=== PATIENT | male | born 1945 | race Caucasian/White ===

== ENCOUNTER 2019-04-04 04:14 | Inpatient (IN) ==
--- NOTE | 2019-03-29 10:08 | EKG Report ---
Test Performed on : 03/29/2019 10:05:37 AM Test Reason : PAT Blood Pressure : / mmHG Vent. Rate : 089 BPM Atrial Rate : 089 BPM P-R Int : 232 ms QRS Dur : 092 ms QT Int : 362 ms P-R-T Axes : 063 -20 037 degrees QTc Int : 440 ms Sinus rhythm. with 1st degree AV block. Possible Inferior infarct , age undetermined Possible Anterolateral infarct , age undetermined Abnormal ECG When compared with ECG of 08-OCT-2017 18:42, premature ventricular complexes. are no longer present DE interval has increased Borderline criteria for Anterolateral infarct are now present Borderline criteria for Inferior infarct are now present Confirmed by Raghu Bishop MD ([id number]) on 03/31/2019 7:20:31 AM
[2019-03-29 10:41] LABS: HEMATOCRIT 33.5 % (42.0-52.0); MCH 34.4 PG (27-31); MCHC 32.8 g/dL (33-37); MCV 104.7 FL (81-99); MPV 9.4 FL (7.4-10.4); RBC 3.2 XMIL (4.7-6.1); RDW 13.7 % (11.5-14.5); WBC 8.34 X1000 (4.8-10.8)
[2019-03-29 10:59] LABS: AGAP 11; BUN 29 mg/dL (8-22); CALCIUM 9.2 mg/dL (8.8-10.2); CHLORIDE 105 mmol/L (98-107); COSMO 292; CREATININE 1.1 mg/dL (0.7-1.2); ESTIMATED GFR > 60; GLUCOSE 125 mg/dL (70-104); POTASSIUM 4.6 mmol/L (3.5-5.1); SODIUM 143 mmol/L (136-145); TCO2 27 mmol/L (25-35)
[2019-04-04] MEDS ORDERED: LR 1,000 ML ONE ×3 (05:37→11:04)
[2019-04-04] MEDS ORDERED: PEPCID ONE (05:37)
[2019-04-04] MEDS ORDERED: KEFZOL 1 GM/D5W 1 GM/50 ML IVPB ONE ×2 (05:37→12:07)
[2019-04-04] MEDS ORDERED: NITROGLYCERIN 50 MG/D5W 50 MG/250 ML IV.SOLN ONE (06:02)
[2019-04-04] MEDS ORDERED: NS 500 ML ONE (06:32)
[2019-04-04] MEDS ORDERED: XYLOCAINE 1% ONE (06:32)
[2019-04-04] MEDS ORDERED: MARCAINE 0.25% PF/EPI 1:200,000 ONE (06:32)
[2019-04-04] MEDS ORDERED: KEFZOL ONE ×2 (06:32→12:20)
[2019-04-04] MEDS ORDERED: HEPARIN ONE (06:32)
[2019-04-04] MEDS ORDERED: NS 1,000 ML ONE ×2 (06:33→11:26)
[2019-04-04] MEDS ORDERED: NEO-SYNEPHRINE ONE (07:57)
[2019-04-04] MEDS ORDERED: XYLOCAINE-MPF 2% ONE ×2 (07:57→12:04)
[2019-04-04] MEDS ORDERED: DECADRON ONE (07:57)
[2019-04-04] MEDS ORDERED: ROBINUL ONE (07:57)
[2019-04-04] MEDS ORDERED: AMIDATE ONE ×2 (07:57→12:03)
[2019-04-04] MEDS ORDERED: NEOSTIGMINE ONE (07:57)
[2019-04-04] MEDS ORDERED: QUELICIN (DOSE) ONE ×2 (07:57→12:04)
[2019-04-04] MEDS ORDERED: ZOFRAN ONE (07:57)
[2019-04-04] MEDS ORDERED: HEPARIN (DOSE) ONE (07:57)
--- NOTE | 2019-04-04 09:21 | OPERATIVE NOTE ---
PROCEDURE DATE: 04/04/2019 PROCEDURE PERFORMED: Left carotid endarterectomy with patch angioplasty. SURGEON: Marques Delarosa M.D. [employer]: Eduardo Pagan RN. PREOPERATIVE DIAGNOSIS: High-grade left internal carotid stenosis. POSTOPERATIVE DIAGNOSIS: High-grade left internal carotid stenosis. DESCRIPTION OF PROCEDURE: Satisfactory general endotracheal anesthesia was achieved. The left side of the neck was prepped and draped in a sterile fashion. We marked the skin in the skin line. We anesthetized the skin with 0.25% Marcaine with epinephrine, and then incised the skin, and carried our incision to the platysma. We achieved satisfactory hemostasis along the skin edge and subcutaneous tissue. We then dissected along the anterior border of the sternocleidomastoid muscle. We placed a Gelpi retractor. We identified the common carotid artery surrounded with an umbilical tape. Then, 5000 units of heparin were given. We dissected along the course of the bulb, external and internal carotids. We surrounded the external and superior thyroid with a large vessel loop. The internal carotid was surrounded with a small vessel loop. Small crossing veins were clipped and divided. The hypoglossal nerve was identified and protected from harm. After the heparin had circulated for more than 5 minutes, we then occluded flow in the branch vessels, and then clamped the common carotid with an angled DeBakey clamp. Under 2.5 loupe magnification, we incised the common carotid, and extended it with a Watson scissors through a significantly calcific plaque, into the internal, past the plaque. A 4 to 3 mm Sundt shunt was placed with clamp time being between 2 and 3 minutes. We held the shunt secure in the artery. Under 2.5 loupe magnification, we then raised the plaque out of the common, transected it with the Watson scissors, used a Emmett to dissect it out of the bulb. We did an eversion endarterectomy out of the external, and then dissected out of the internal until we reached a satisfactory taper point in the internal. We then irrigated out the endarterectomized vessel, removing all leaflets that we could identify. Two 7-0 Prolene stitches were used to tack the intima distally. We then obtained a 1 x 6 patch, which had been soaked while we were operating, and then began the patch angioplasty using a 6-0 Prolene running stitch. As we neared completion of the patch angioplasty, we back bled the external, removed the shunt from the internal and back bled it, then removed the shunt from the common, forward bleeding it. We once again clamped off the vessels. We then finished the patch angioplasty. As we then held the internal occluded, we opened the external and the common, and after 5 seconds, opened the internal. A couple of extra stitches were used to achieve satisfactory hemostasis of the patch angioplasty. We irrigated out the neck with Kefzol- impregnated saline, and placed a Kapil drain within the wound. We then once again injected 0.25% Marcaine with epinephrine along the course of the incision. We then closed the platysma with a running 3-0 Polysorb. We closed the skin with a 4-0 Polysorb subcuticular stitch. A sterile dressing was applied. Gauze was placed around the exit site of the drain as well. He tolerated the procedure satisfactorily, was awakened at the time of this dictation. cc: Marques Delarosa MD
[2019-04-04] MEDS: OFIRMEV 1000 MG/ISOTONIC SOLN 1,000 MG/100 ML BOTTLE ONE (10:00)
[2019-04-04] MEDS: ALBUMIN 25% ONE (10:45)
[2019-04-04] MEDS ORDERED: NEO-SYNEPHRINE 50 MG in NS 250 ML IV SCH (11:00)
[2019-04-04 11:06] LABS: BASO# 0.03 X1000 (0.0-0.2); BASO% 0.3 % (0.0-0.8); EOS# 0.05 X1000 (0.0-0.7); EOS% 0.4 % (0.0-10.0); HEMATOCRIT 27.9 % (42.0-52.0); HEMOGLOBIN 9.1 g/dL (14.0-18.0); IMM GRAN# 0.03 X1000 (0.0-0.04); IMM GRAN% 0.3 % (0.0-0.5); LYMPH# 2.16 X1000 (1.2-3.4); LYMPH% 18.6 % (20.5-51.1); MCH 34.6 PG (27-31); MCHC 32.6 g/dL (33-37); MCV 106.1 FL (81-99); MONO% 5.2 % (1.7-9.3); MPV 9.3 FL (7.4-10.4); NEUT# 8.75 X1000 (1.4-6.5); NEUT% 75.2 % (42.2-75.2); PLT 136 X1000 (130-400); RBC 2.63 XMIL (4.7-6.1); RDW 13.5 % (11.5-14.5); WBC 11.62 X1000 (4.8-10.8)
[2019-04-04] MEDS ORDERED: THROMBIN-JMI ONE (12:24)
[2019-04-04] MEDS ORDERED: ULTRAM PO PRN (14:17)
[2019-04-04] MEDS ORDERED: ASPIRIN PO SCH (14:17)
[2019-04-04] MEDS ORDERED: ZOFRAN IV PRN (14:17)
[2019-04-04] MEDS: LR 1,000 ML IV SCH (14:40)
--- NOTE | 2019-04-04 15:25 | OPERATIVE NOTE ---
PROCEDURE DATE: 04/04/2019 PROCEDURES: Left neck exploration. PREOP DIAGNOSIS: Postoperative bleeding. POSTOPERATIVE DIAGNOSIS: Postoperative bleeding. INDICATIONS: A 73-year-old who has had a left carotid endarterectomy with patch angioplasty this morning in the recovery room. He has bled about 1000 mL out his drain. It is bright red blood in character. His hemodynamics have stayed stable. His hemoglobin has fallen to 9, his PTT appears to be within normal range now so we will take him back for left neck exploration. I discussed it with him as well as his family. They understand and agree to proceed. DESCRIPTION OF PROCEDURE: The patient was brought back to the operating room. Satisfactory general endotracheal anesthesia was achieved. The drain was removed from the neck. The left neck was then prepped and draped in a sterile fashion. Another gram of Kefzol was given since had been about almost 6 hours since the previous one. We incised the subcuticular stitch, cut the stitches within the platysma and exposed the neck. There was hematoma within the neck. It was evacuated. After removing all the clot we then examined the patch angioplasty. There was no bleeding from the patch angioplasty. There was oozing from the surrounding tissue including lymph node. One small vessel was clipped. We cauterized the surrounding tissue that just had generalized oozing. We explored the wound extensively to cauterize any oozing bleeding tissue. We then irrigated out the wound with Kefzol-impregnated saline. We then used topical thrombin to irrigate the wound with and let the thrombin sit in the wound as well. After that was used up once again we placed a new Kapil drain. There was oozing from the drain site as well and it was also treated with thrombin spray. The new Kapil drain was placed. It was secured at the skin level the 2-0 silk. We then closed the platysma with a running 3-0 Polysorb. The skin was closed with 4-0 Polysorb subcuticular stitch. Sterile dressing was applied. He tolerated procedure satisfactorily, was awakened time this dictation. cc: Marques Delarosa MD
[2019-04-04] MEDS: OFIRMEV 1000 MG/ISOTONIC SOLN 1,000 MG/100 ML BOTTLE IV SCH ×2 (16:41→21:57)
[2019-04-04] MEDS: NEO-SYNEPHRINE 50 MG in NS 250 ML IV SCH (18:39)
--- NOTE | 2019-04-04 19:06 | GENERAL SURGERY PROGRESS NOTE ---
DATE: 04/04/2019 It is 4:30 in the afternoon. Mr. Gagnon has had no further bleeding of significance since his re- exploration. His hemodynamics are good. Blood pressure is 150. Neurologically, he is fine. Will allow him to have clear liquids tonight. cc: Marques Delarosa MD
[2019-04-05] MEDS: NEO-SYNEPHRINE 50 MG in NS 250 ML IV SCH (00:38)
[2019-04-05] MEDS: LR 1,000 ML IV SCH ×3 (02:06→14:18)
[2019-04-05] MEDS: OFIRMEV 1000 MG/ISOTONIC SOLN 1,000 MG/100 ML BOTTLE IV SCH (03:11)
[2019-04-05] MEDS: SYNTHROID PO SCH (06:03)
[2019-04-05 06:16] LABS: AGAP 11; BUN 16 mg/dL (8-22); CALCIUM 8.7 mg/dL (8.8-10.2); CHLORIDE 109 mmol/L (98-107); COSMO 289; CREATININE 0.9 mg/dL (0.7-1.2); ESTIMATED GFR > 60; GLUCOSE 112 mg/dL (70-104); SODIUM 144 mmol/L (136-145); TCO2 24 mmol/L (25-35)
[2019-04-05] MEDS ORDERED: NORCO-7.5 PO PRN (06:49)
[2019-04-05 07:11] LABS: BASO# 0.01 X1000 (0.0-0.2); BASO% 0.1 % (0.0-0.8); HEMATOCRIT 25.3 % (42.0-52.0); HEMOGLOBIN 8.3 g/dL (14.0-18.0); LYMPH# 4.49 X1000 (1.2-3.4); LYMPH% 40.5 % (20.5-51.1); MCH 31.7 PG (27-31); MCHC 32.8 g/dL (33-37); MCV 96.6 FL (81-99); MONO# 1.32 X1000 (0.11-0.59); MONO% 11.9 % (1.7-9.3); MPV 9.8 FL (7.4-10.4); NEUT# 5.26 X1000 (1.4-6.5); NEUT% 47.5 % (42.2-75.2); PLT 95 X1000 (130-400); RBC 2.62 XMIL (4.7-6.1); RDW 20.8 % (11.5-14.5); WBC 11.08 X1000 (4.8-10.8)
[2019-04-05] MEDS: KLOR-CON PO SCH (08:00)
[2019-04-05] MEDS: FOLIC ACID PO SCH (08:00)
[2019-04-05] MEDS: LIPITOR PO SCH (08:00)
[2019-04-05] MEDS: AMARYL PO SCH (08:00)
[2019-04-05] MEDS: MOBIC PO SCH (08:00)
[2019-04-05] MEDS: ZANTAC PO SCH (08:00)
[2019-04-05] MEDS: VICON-C PO SCH (08:00)
[2019-04-05] MEDS: THERA M PLUS PO SCH (08:00)
[2019-04-05] MEDS: ZYRTEC PO SCH (08:01)
[2019-04-05] MEDS: ASPIRIN EC PO SCH (08:01)
[2019-04-05] MEDS ORDERED: HYZAAR 100/12.5 MG TAB PO SCH (09:00)
--- NOTE | 2019-04-05 09:35 | GENERAL SURGERY PROGRESS NOTE ---
DATE: 04/05/2019 SUBJECTIVE: Postop day 1 after left carotid endarterectomy followed by left neck exploration for bleeding. He is doing generally well. OBJECTIVE: His heart rate is 60 blood pressure 115/58. Trachea is in the midline. Neurologically he is fine. He is communicative and pleasant this morning. He has had only 30 mL out his drain overnight. PLAN: The plan is to remove his drain and transfer him out to a regular room today. We will advance his diet. cc: Marques Delarosa MD
[2019-04-05] MEDS: OFIRMEV 1000 MG/ISOTONIC SOLN 1,000 MG/100 ML BOTTLE ONE (09:37)
[2019-04-05] MEDS: ALBUMIN 25% ONE (09:38)
[2019-04-06] MEDS: ZOFRAN ODT PO PRN ×2 (05:13→10:44)
[2019-04-06] MEDS: SYNTHROID PO SCH (06:09)
--- NOTE | 2019-04-06 07:41 | GENERAL SURGERY PROGRESS NOTE ---
DATE: 04/06/2019 He is postop day 2 after carotid endarterectomy with re-exploration of his neck. He is neurologically fine. His trachea is in the midline. Blood pressure today is 108/63, heart rate 87. The plan is to discharge him today. He will return to the office in a week. We will hold his blood pressure medicine. We will put him on iron sulfate as well to build his blood count back up. cc: Marques Delarosa MD
[2019-04-06 07:42] VITALS: BP 99/56
[2019-04-06] MEDS: AMARYL PO SCH (08:17)
[2019-04-06] MEDS: THERA M PLUS PO SCH (08:17)
[2019-04-06] MEDS: KLOR-CON PO SCH (08:18)
[2019-04-06] MEDS: ZANTAC PO SCH (08:18)
[2019-04-06] MEDS: VICON-C PO SCH (08:18)
[2019-04-06] MEDS: ASPIRIN EC PO SCH (08:18)
[2019-04-06] MEDS: MOBIC PO SCH (08:19)
[2019-04-06] MEDS: FOLIC ACID PO SCH (08:19)
[2019-04-06] MEDS: LIPITOR PO SCH (08:19)
[2019-04-06] MEDS: ZYRTEC PO SCH (08:34)
[2019-04-06] MEDS ORDERED: FERROUS SULFATE PO SCH (09:00)
--- NOTE | 2019-04-09 20:44 | DISCHARGE SUMMARY ---
ADMISSION DATE: 04/04/2019 DISCHARGE DATE: 04/06/2019 Mr. Gagnon is a 73-year-old gentleman admitted for a carotid endarterectomy on the left side. His right side was occluded. He underwent the operation on the morning of the . In the recovery room he was noted to have significant bleeding up to 1000 mL so he was returned to the operating room at that time. He was just found to have a generalized ooze. Cautery was used. Topical thrombin was used and the drain was replaced. Postoperatively he did generally well. He was maintained in the intensive care unit for the first night. The next morning his drain was removed. 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 By the he was neurologically fine. No evidence of further bleeding and it was felt he could be discharged home. He was given iron sulfate at discharge because of his anemia. He was also given Ultram for pain. He will resume his other usual medications. He will return to see me in the office in a week. cc: Marques Delarosa MD MTDD
== END 2019-04-06 10:51 | disposition home or self-care (01) | DRG 38 ==
LOC: SURHOLD 04:14 → ICU 14:08 → 4N 04-05 12:05
PROVIDERS: ADMIT Surgery; ATTEND Surgery
PROC: GE.EXPL (2019-04-04 11:55)